=== PATIENT | female | born 1990 | race African-American/Black ===

== ENCOUNTER 2017-08-31 21:35 | Emergency (ER) | payer MEDICAID ==
[~2017-08-31] VITALS: Ht 167.6 cm; Wt 71.6 kg
[2017-09-01] MEDS ORDERED: TETANUS, DIPHTHERIA, PERTUSSIS VAC/PF 0.5ML (>7YR OLD) IM ONE (01:30)
[2017-09-01] MEDS ORDERED: LIDOCAINE HCL 1%/EPI 1:200,000 30 ML VIAL MC ONE (01:30)
[2017-09-01] MEDS ORDERED: KETOROLAC 30MG/ML VIAL IM ONE (01:30)
[2017-09-01] MEDS ORDERED: BACITRACIN ZINC OINT UDPKT TOP ONE (01:30)
[2017-09-01] MEDS ORDERED: ONDANSETRON 4MG ODT PO ONE (01:30)
[2017-09-01 04:37] VITALS: BP 128/77
== END 2017-09-01 04:43 | disposition home or self-care (01) ==
LOC: ER 21:56
DX: S01.81XA Laceration without foreign body of other part of head, initial encounter (principal); S01.511A Laceration without foreign body of lip, initial encounter; F17.210 Nicotine dependence, cigarettes, uncomplicated; Y00.XXXA Assault by blunt object, initial encounter; Y93.89 Activity, other specified; Y92.018 Other place in single-family (private) house as the place of occurrence of the external cause
CPT/HCPCS: 70450; 81025; 90471; 90715; 96372; 99284; J1885; Q0162

== ENCOUNTER 2017-09-09 16:10 | Emergency (ER) | payer MEDICAID | END 2017-09-09 18:13 | disposition left against medical advice (07) | LOC: ER 18:01 | DX: Z48.02 Encounter for removal of sutures (principal); Z53.21 Procedure and treatment not carried out due to patient leaving prior to being seen by health care provider ==

== ENCOUNTER 2017-09-23 10:36 | Emergency (ER) | payer MEDICAID | END 2017-09-23 11:28 | disposition left against medical advice (07) | LOC: ER 11:27 | DX: R51 Headache (principal); Z53.21 Procedure and treatment not carried out due to patient leaving prior to being seen by health care provider ==